=== PATIENT | male | born 2000 | race Hispanic/Latino ===

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

== ENCOUNTER 2023-06-08 13:31 | Emergency (ER) | payer BC, MEDICAID ==
[~2023-06-08] VITALS: Ht 172.7 cm; Wt 75.3 kg
[2023-06-08 17:12] LABS: RAPID GROUP A STREP negative (NEGATIVE)
[2023-06-08 17:18] LABS: INFLUENZA TYPE A Negative For Type A (NEGATIVE); INFLUENZA TYPE B Negative For Type B (NEGATIVE)
[2023-06-08 17:29] LABS: SARS-CoV-2, RNA, NAAT NEGATIVE SARS CoV-2 (NEGATIVE)
[2023-06-08 21:37] VITALS: BP 148/75; PULSE 86; RESP 18; O2SAT 98
[2023-06-08] MEDS ORDERED: ACET-2893 PO (21:47)
== END 2023-06-08 21:57 | disposition home or self-care (01) ==
LOC: EDH 13:31
DX: M94.0 Chondrocostal junction syndrome [Tietze] (principal); Z20.822 Contact with and (suspected) exposure to COVID-19; Z98.890 Other specified postprocedural states
CPT/HCPCS: 71045; 87635; 87804; 87880